=== PATIENT | male | born 1975 | race Caucasian/White ===

== ENCOUNTER 2019-12-22 09:26 | Emergency (ER) | payer OTHER, SELFPAY ==
[~2019-12-22] VITALS: Ht 190.5 cm; Wt 87.2 kg
--- NOTE | 2019-12-22 10:19 | NUR ---
PT C/O FALLING FRANCISCO J ABOUT TEN FREET FROM LADDER WITH RIGHT HAND OUTSTRETCHED TO BREAK FALL. PT HAS PAIN, SWELLING, DEV=FORMITY TO RIGHT WRIST/FA, +CMS DISTALLY. LIOR PAC AT BEDSIDE. WAITING FOR ORDERS. PT DENIES HEAD OR NECK PAIN BUT DOES HAVE LOWER BACK PAIN THAT IS NOT TENDER ON PALPATION ALONG THE SPINE OR CVA AREA.
[2019-12-22] MEDS ORDERED: DIPH,PERTUSS(ACELL),TET VAC/PF 0.5 ML IM-VACC ONE ×2 (10:24→10:30)
[2019-12-22] MEDS ORDERED: MORPHINE SULFATE 4 MG/ML, 1ML ONE ×2 (10:24→11:13)
[2019-12-22] MEDS ORDERED: ONDANSETRON 2MG/ML, 2ML ONE (10:24)
[2019-12-22] MEDS ORDERED: SODIUM CHLORIDE FLUSH 10ML SYR IVF ONE (10:30)
[2019-12-22] MEDS ORDERED: ONDANSETRON 2MG/ML, 2ML IVPush ONE (10:30)
[2019-12-22] MEDS: MORPHINE SULFATE 4 MG/ML, 1ML IVPush PRN ×2 (10:36→11:16)
[2019-12-22] MEDS ORDERED: PROPOFOL 10 MG/ML, 20ML ONE (12:08)
[2019-12-22] MEDS ORDERED: FENTANYL PF 100 MCG/2ML ONE (12:08)
--- NOTE | 2019-12-22 14:08 | NUR ---
PLEASED REFER TO PROCEDURAL SEDATION PACKET FOR NTES AND VITALS FROM [id number].
--- NOTE | 2019-12-22 14:08 | NUR ---
CHART UP FOR MD RECHECK. PT AWARE.
[2019-12-22 15:11] VITALS: BP 148/100
== END 2019-12-22 15:15 | disposition home or self-care (01) ==
LOC: EDBD 09:26 → ED 10:53
DX: S52.571A Other intraarticular fracture of lower end of right radius, initial encounter for closed fracture (principal); W18.39XA Other fall on same level, initial encounter; Y93.89 Activity, other specified; Y92.89 Other specified places as the place of occurrence of the external cause; Y99.8 Other external cause status
CPT/HCPCS: 25605; 73110; 73200; 90471; 90715; 96374; 96375; 96376; 99152; 99285; J2270; J2405

== ENCOUNTER 2020-01-05 11:52 | Day surgery (SDC) | payer MEDICAID, OTHER ==
[~2020-01-05] VITALS: Ht 182.9 cm; Wt 83.9 kg
[2020-01-05] MEDS ORDERED: LIDOCAINE-MPF 1%, 2ML INFIL STA (12:26)
[2020-01-05] MEDS ORDERED: CHLORHEXIDINE 15 ML UDC MM STA (12:26)
[2020-01-05] MEDS ORDERED: LACTATED RINGERS 1,000 ML IV SCH (12:26)
[2020-01-05] MEDS ORDERED: CYCL-259 PO (12:28)
[2020-01-05] MEDS ORDERED: TRAM50TA2 PO (12:28)
[2020-01-05] MEDS ORDERED: OXYC1TAB18 PO (12:28)
[2020-01-05] MEDS ORDERED: GABA600T7 PO (12:28)
[2020-01-05] MEDS ORDERED: CEPH-376 PO (12:28)
[2020-01-05] MEDS ORDERED: TEMA7.5C PO (12:28)
[2020-01-05 12:44] VITALS: BP 184/125
[2020-01-05] MEDS ORDERED: LORazepam 2 MG/ML, 1ML IVPush STA (13:12)
[2020-01-05] MEDS ORDERED: EPINEPHRINE 1 MG/ML, 1ML ONE (13:23)
[2020-01-05] MEDS ORDERED: BUPIVACAINE/PF 0.5% ONE (13:23)
[2020-01-05] MEDS ORDERED: LORazepam 2 MG/ML, 1ML ONE ×2 (13:32→16:26)
[2020-01-05] MEDS ORDERED: MIDAZOLAM 1 MG/ML, 2ML ONE (13:52)
[2020-01-05] MEDS ORDERED: FENTANYL PF 100 MCG/2ML ONE ×4 (13:53→17:00)
[2020-01-05] MEDS ORDERED: LABETALOL 5MG/ML, 20ML IV PRN (14:00)
[2020-01-05] MEDS ORDERED: ACETAMINOPHEN 325 MG TABLET PO PRN (14:00)
[2020-01-05] MEDS ORDERED: OXYcodone 5 MG/5 ML ORAL.SOL UDC PO PRN (14:00)
[2020-01-05] MEDS ORDERED: HYDROmorphone 1 MG/ML, 1ML INJ IVPush PRN (14:00)
[2020-01-05] MEDS ORDERED: PROMETHAZINE 25 MG/ML, 1ML IVPush PRN (14:00)
[2020-01-05] MEDS ORDERED: LORazepam 2 MG/ML, 1ML IVPush PRN (14:00)
[2020-01-05] MEDS ORDERED: ALBUTEROL SULFATE 2.5 MG/3 ML NPPB PRN (14:00)
[2020-01-05] MEDS ORDERED: PROPOFOL 10 MG/ML, 20ML ONE (16:03)
[2020-01-05] MEDS ORDERED: DEXAMETHASONE 4 MG/ML, 1ML ONE (16:03)
[2020-01-05] MEDS ORDERED: ONDANSETRON 2MG/ML, 2ML ONE (16:03)
[2020-01-05] MEDS ORDERED: CEFAZOLIN 1,000 MG ONE (16:03)
[2020-01-05] MEDS ORDERED: OXYcodone 5 MG/5 ML ORAL.SOL UDC ONE (16:26)
[2020-01-05] MEDS ORDERED: MEPERIDINE/PF 25MG/ML,1ML ONE (16:26)
[2020-01-05] MEDS ORDERED: hydrALAzine 20 MG/ML, 1ML ONE (16:31)
[2020-01-05] MEDS: FENTANYL PF 100 MCG/2ML IV PRN ×6 (16:40→17:27)
[2020-01-05] MEDS: hydrALAzine 20 MG/ML, 1ML IV PRN ×2 (16:48→17:37)
[2020-01-05] MEDS: MEPERIDINE/PF 25MG/0.5ML IVPush PRN ×2 (16:55→17:15)
[2020-01-05] MEDS ORDERED: METOPROLOL 1 MG/ML, 5ML ONE (17:14)
[2020-01-05] MEDS ORDERED: METOPROLOL 1 MG/ML, 5ML IV PRN (17:30)
== END 2020-01-05 18:45 | disposition home or self-care (01) ==
LOC: OR 11:52
PROVIDERS: ATTEND Orthopaedic Surgery Hand Surgery
DX: S52.531A Colles' fracture of right radius, initial encounter for closed fracture (principal); Z11.59 Encounter for screening for other viral diseases; I10 Essential (primary) hypertension; F17.220 Nicotine dependence, chewing tobacco, uncomplicated; Z79.891 Long term (current) use of opiate analgesic; Z79.899 Other long term (current) drug therapy; Z88.8 Allergy status to other drugs, medicaments and biological substances; Z98.890 Other specified postprocedural states; W11.XXXA Fall on and from ladder, initial encounter; Y93.89 Activity, other specified; Y92.89 Other specified places as the place of occurrence of the external cause; Y99.0 Civilian activity done for income or pay
CPT/HCPCS: 25609; 36415; 73110; 87635; 93005; C1713; C1762; J0171; J0360; J0690; J1100; J2060; J2175; J2250; J2405; J2704; J3010; J7120; 76000